=== PATIENT | male | born 1975 | race Two or more races ===

== ENCOUNTER 2024-11-03 17:40 | Emergency (ER) | payer OTHER ==
[~2024-11-03] VITALS: Ht 170.2 cm; Wt 95.7 kg
[2024-11-03] MEDS ORDERED: SUBOXONE 8 MG-1 EACH (17:48)
[2024-11-03] MEDS ORDERED: LEVO-T88 MCG (17:48)
[2024-11-03] MEDS ORDERED: KETOROLAC TROMETHAMINE 60 MG VIAL IM ONE (18:30)
[2024-11-03 18:35] LABS: BASO % 0.3 % (0.1-1.2); EOS # 0.06 (0.04-0.54); EOS % 0.9 % (0.7-7.0); LYMPH # 1.54 (1.18-3.74); LYMPH % 22.2 % (19.3-53.1); MEAN PLATELET VOLUME 10.00 fl (9.4-12.4); MONO # 0.58 (0.24-0.82); MONO % 8.3 % (4.7-12.5); NEUT # 4.74 (1.56-6.13); NEUT % 68.2 % (34.0-71.1); RED CELL DISTRIBUTION WIDTH 13.0 % (11.6-14.4)
[2024-11-03 18:43] LABS: URINE APPEARANCE Clear; URINE BILIRRUBIN Negative (NEGATIVE); URINE BLOOD Small; URINE COLOR Yellow; URINE GLUCOSE Negative (NEGATIVE); URINE KETONE Trace (NEGATIVE); URINE LEUKOCYTE Negative; URINE NITRATE Negative; URINE PROTEIN Negative (NEGATIVE); URINE UROBILINOGEN 0.2 E.U./dl
[2024-11-03 18:45] LABS: URINE BACTERIA 5.9 uL (0.0-1933); URINE EPITHELIAL CELLS 1.6 uL (0.0-38.8); URINE RBC 60.8 uL (0.0-20.8); URINE WBC 3.8 uL (0.0-23.2)
[2024-11-03 18:47] LABS: URINE CAST 0.00 uL (0.0-1.40)
[2024-11-03 19:00] LABS: INR 0.96
[2024-11-03] MEDS ORDERED: TAMSULOSIN HCL 0.4 MG CAP PO ONE ×2 (19:00→19:27)
[2024-11-03 19:04] LABS: ALT/SGPT 28.0 U/L (12-78); AST/SGOT 11.0 U/L (15-37); BILIRUBIN TOTAL 0.3 mg/dL (0.3-1.2); BUN CREA RATIO 19.0 (7.0-25.0); CREATININE SERUM 0.91 mg/dL (0.70-1.30); GFR 88.19; GLOBULINA 3.2 G/DL (2.4-3.5); GLUCOSE FASTING 131.0 mg/dL (65-100); OSMOLALITY SERUM 285.0 MOSM/KG (275-295)
[2024-11-03] MEDS ORDERED: NORFLEX100MG PO (21:31)
[2024-11-03] MEDS ORDERED: CIPRO500 MG PO (21:31)
[2024-11-03] MEDS ORDERED: TAMS0.4C PO (21:31)
[2024-11-03] MEDS ORDERED: PEPCID AC20 MG PO (21:31)
== END 2024-11-03 22:00 | disposition home or self-care (01) ==
LOC: ER 17:40
PROVIDERS: General Practice
DX: R10.2 Pelvic and perineal pain (principal); N50.819 Testicular pain, unspecified; N44.2 Benign cyst of testis; N39.0 Urinary tract infection, site not specified; E11.9 Type 2 diabetes mellitus without complications; Z79.84 Long term (current) use of oral hypoglycemic drugs; E03.9 Hypothyroidism, unspecified; Z88.0 Allergy status to penicillin